=== PATIENT | female | born 1935 | race Caucasian/White ===

== ENCOUNTER 2017-04-28 11:46 | Emergency (ER) | payer MEDICARE, OTHER ==
[~2017-04-28] VITALS: Ht 170.2 cm; Wt 64.9 kg
[~2017-04-28 11:46] MED LIST: ATOM40 PO; ATOR40TA PO; ATORVASTATIN CA40 MG PO; Ativan1 MG PO; CARV25 PO; Cyclobenzaprine5 MG PO; FEXO180 PO; FEXO60; HYDACE5 PO; HYDR1TAB94 PO; LAMO100 PO; LEVSOD100 PO; MOEHYD7.5 PO; MOEX15 PO; Norco 5-325 Ta1 EACH PO; PRED20 PO; RALO60 PO; TRIHYD253A PO
[2017-04-28 12:14] LABS: BASOPHILS ABSOLUTE AUTO 0.02 K/mm3 (0.00-0.23); BASOPHILS PERCENT AUTO 0 % (0-2); EOSINOPHILS PERCENT AUTO 2 % (0-6); Hematocrit 37.6 % (33.0-51.0); Hemoglobin 12.6 g/dL (11.5-16.0); IMMATURE GRAN ABSOLUTE AUTO 0.02 K/mm3 (0.00-0.10); IMMATURE GRAN PERCENT AUTO 0 % (0-1); LYMPHOCYTES ABSOLUTE AUTO 0.93 K/mm3 (0.84-5.20); LYMPHOCYTES PERCENT AUTO 18 % (21-46); MONOCYTES PERCENT AUTO 10 % (4-13); Mean Corpuscular HGB 30.4 pg (26.0-34.0); Mean Corpuscular HGB Conc 33.5 g/dL (31.5-36.5); Mean Corpuscular Volume 91 fL (80-100); Mean Platelet Volume 9.6 fL (9.1-12.4); NEUTROPHILS ABSOLUTE AUTO 3.54 K/mm3 (1.96-9.15); NEUTROPHILS PERCENT AUTO 69 % (41-73); Platelet Count 165 K/mm3 (150-400); RDW Coefficient Variation 12.7 % (11.7-14.2); RDW Standard Deviation 41.7 fL (35.1-46.3); Red Blood Cell Count 4.14 M/mm3 (3.80-5.20); White Blood Cell Count 5.11 K/mm3 (4.00-11.30)
[2017-04-28 12:29] LABS: Alanine Aminotransfer (ALT/SGP 19 U/L (12-78); Albumin, Blood 3.4 g/dL (3.4-5.0); Albumin/Globulin Ratio 1.1 (0.8-1.8); Alk Phos 65 U/L (50-136); Anion Gap 9 mmol/L (6-16); Aspartate Aminotrans (AST/SGOT 17 U/L (12-37); Bilirubin, Total 0.7 mg/dL (0.1-1.0); Blood Urea Nitrogen 25 mg/dL (8-24); Bun/Creatinine Ratio 21.7 (12.0-20.0); CO2, Blood 27 mmol/L (21-32); Calcium, Blood 9.4 mg/dL (8.5-10.1); Chloride, Blood 104 mmol/L (98-108); Creatinine, Blood 1.15 mg/dL (0.40-1.00); Globulin, Blood 3.2 g/dL (2.2-4.0); Glomerular Filtration Rate 48 (60-); Glucose, Blood 101 mg/dL (70-99); Potassium, Blood 3.6 mmol/L (3.5-5.5); Sodium, Blood 140 mmol/L (136-145); Total Protein, Blood 6.6 g/dL (6.4-8.2); Troponin I <0.015 ng/mL (0.000-0.040)
[2017-04-28 12:57] LABS: Free Thyroxine 1.38 ng/dL (0.70-1.60)
[2017-08-24] MEDS ORDERED: Flonase 0.05% N16 GM (05:58)
[2017-09-14] MEDS ORDERED: ATOR40TA (11:05)
[2017-09-14] MEDS ORDERED: Calcium Magnes1 EAC1 (11:06)
== END 2017-04-28 14:09 | disposition home or self-care (01) ==
LOC: ER 11:46
PROVIDERS: Physician Assistant
DX: R55 Syncope and collapse (principal); R42 Dizziness and giddiness; I10 Essential (primary) hypertension; Z87.891 Personal history of nicotine dependence; Z79.899 Other long term (current) drug therapy
CPT/HCPCS: 36415; 70450; 71046; 80053; 84439; 84443; 84484; 85025; 93005; 93010; 99284

== ENCOUNTER 2017-10-01 19:43 | Emergency (ER) | payer MEDICARE, OTHER ==
[~2017-10-01] VITALS: Ht 172.7 cm; Wt 68.0 kg
[~2017-10-01 19:43] MED LIST changes: +ATOR40TA; +Calcium Magnes1 EAC1; +Flonase 0.05% N16 GM
[2017-10-01 21:08] LABS: BASOPHILS ABSOLUTE AUTO 0.05 K/mm3 (0.00-0.23); BASOPHILS PERCENT AUTO 1 % (0-2); EOSINOPHILS ABSOLUTE AUTO 0.11 K/mm3 (0.00-0.68); EOSINOPHILS PERCENT AUTO 2 % (0-6); Hematocrit 33.9 % (33.0-51.0); Hemoglobin 10.8 g/dL (11.5-16.0); IMMATURE GRAN ABSOLUTE AUTO 0.04 K/mm3 (0.00-0.10); IMMATURE GRAN PERCENT AUTO 1 % (0-1); LYMPHOCYTES ABSOLUTE AUTO 0.77 K/mm3 (0.84-5.20); LYMPHOCYTES PERCENT AUTO 13 % (21-46); MONOCYTES ABSOLUTE AUTO 0.64 K/mm3 (0.16-1.47); MONOCYTES PERCENT AUTO 10 % (4-13); Mean Corpuscular HGB 31.4 pg (26.0-34.0); Mean Corpuscular HGB Conc 31.9 g/dL (31.5-36.5); Mean Corpuscular Volume 99 fL (80-100); Mean Platelet Volume 10.1 fL (9.1-12.4); NEUTROPHILS ABSOLUTE AUTO 4.53 K/mm3 (1.96-9.15); NEUTROPHILS PERCENT AUTO 74 % (41-73); Platelet Count 208 K/mm3 (150-400); RDW Coefficient Variation 15.8 % (11.7-14.2); RDW Standard Deviation 52.6 fL (35.1-46.3); Red Blood Cell Count 3.44 M/mm3 (3.80-5.20); White Blood Cell Count 6.14 K/mm3 (4.00-11.30)
[2017-10-01 21:24] LABS: Alanine Aminotransfer (ALT/SGP 38 U/L (12-78); Albumin, Blood 2.4 g/dL (3.4-5.0); Albumin/Globulin Ratio 0.6 (0.8-1.8); Alk Phos 100 U/L (50-136); Anion Gap 4 mmol/L (6-16); Aspartate Aminotrans (AST/SGOT 33 U/L (12-37); Bilirubin, Total 0.3 mg/dL (0.1-1.0); Blood Urea Nitrogen 29 mg/dL (8-24); Bun/Creatinine Ratio 29.9 (12.0-20.0); CO2, Blood 28 mmol/L (21-32); Calcium, Blood 9.2 mg/dL (8.5-10.1); Chloride, Blood 105 mmol/L (98-108); Creatinine, Blood 0.97 mg/dL (0.40-1.00); Globulin, Blood 3.7 g/dL (2.2-4.0); Glomerular Filtration Rate 58 (60-); Glucose, Blood 120 mg/dL (70-99); Potassium, Blood 4.7 mmol/L (3.5-5.5); Sodium, Blood 137 mmol/L (136-145); Total Protein, Blood 6.1 g/dL (6.4-8.2); Troponin I <0.015 ng/mL (0.000-0.040)
== END 2017-10-01 23:10 | disposition home or self-care (01) ==
LOC: ER 19:43
PROVIDERS: Emergency Medicine
DX: R06.02 Shortness of breath (principal); Z79.899 Other long term (current) drug therapy; I10 Essential (primary) hypertension; E03.9 Hypothyroidism, unspecified; Z87.891 Personal history of nicotine dependence
CPT/HCPCS: 36415; 71046; 80053; 83880; 84484; 85025; 93005; 93010; 99285-25

== ENCOUNTER 2017-11-12 10:17 | Emergency (ER) | payer MEDICARE, OTHER ==
[~2017-11-12] VITALS: Ht 172.7 cm; Wt 78.0 kg
== END 2017-11-12 12:30 | disposition home or self-care (01) ==
LOC: ER 10:17
DX: K94.23 Gastrostomy malfunction (principal); I10 Essential (primary) hypertension; F41.9 Anxiety disorder, unspecified; Z79.899 Other long term (current) drug therapy; Z87.891 Personal history of nicotine dependence
CPT/HCPCS: 99283

== ENCOUNTER → 2020-09-30 | Outpatient (CLI) | payer MEDICARE | END | disposition home or self-care (01) | LOC: LAB 15:49 → LAB SHORT 15:49 | DX: D22.62 Melanocytic nevi of left upper limb, including shoulder (principal) | CPT/HCPCS: 88305 ==

== ENCOUNTER 2023-07-31 01:33 | Emergency (ER) | payer MEDICARE ==
[~2023-07-31] VITALS: Ht 167.6 cm; Wt 63.5 kg
[~2023-07-31 01:33] MED LIST changes: -ATOR40TA
[2023-07-31] MEDS ORDERED: HYDROcodone 5-APAP 325 TAB PO ONE (01:45)
[2023-07-31] MEDS ORDERED: RISEDRONATE SOD35 M2 PO (01:45)
[2023-07-31 02:05] LABS: BASOPHILS ABSOLUTE AUTO 0.03 K/mm3 (0.00-0.23); BASOPHILS PERCENT AUTO 1 % (0-2); EOSINOPHILS ABSOLUTE AUTO 0.12 K/mm3 (0.00-0.68); EOSINOPHILS PERCENT AUTO 2 % (0-6); Hematocrit 33.8 % (33.0-51.0); Hemoglobin 10.8 g/dL (11.5-16.0); IMMATURE GRAN ABSOLUTE AUTO 0.04 K/mm3 (0.00-0.10); IMMATURE GRAN PERCENT AUTO 1 % (0-1); LYMPHOCYTES ABSOLUTE AUTO 0.89 K/mm3 (0.84-5.20); LYMPHOCYTES PERCENT AUTO 14 % (21-46); MONOCYTES ABSOLUTE AUTO 0.62 K/mm3 (0.16-1.47); MONOCYTES PERCENT AUTO 10 % (4-13); Mean Corpuscular HGB 30.1 pg (26.0-34.0); Mean Corpuscular Volume 94 fL (80-100); Mean Platelet Volume 10.2 fL (9.1-12.4); NEUTROPHILS ABSOLUTE AUTO 4.67 K/mm3 (1.96-9.15); NEUTROPHILS PERCENT AUTO 73 % (41-73); Platelet Count 130 K/mm3 (150-400); RDW Coefficient Variation 12.8 % (11.7-14.2); RDW Standard Deviation 44.2 fL (35.1-46.3); Red Blood Cell Count 3.59 M/mm3 (3.80-5.20); White Blood Cell Count 6.37 K/mm3 (4.00-11.30)
[2023-07-31 02:23] LABS: Albumin, Blood 3.1 g/dL (3.4-5.0); Bilirubin, Total 0.6 mg/dL (0.1-1.0); Bun/Creatinine Ratio 34.5 (12.0-20.0); Calcium, Blood 9.5 mg/dL (8.5-10.1); Creatinine, Blood 0.93 mg/dL (0.40-1.00); Globulin, Blood 3.2 g/dL (2.2-4.0); Magnesium, Blood 2.1 mg/dL (1.6-2.4); Potassium, Blood 3.6 mmol/L (3.5-5.5); Total Protein, Blood 6.3 g/dL (6.4-8.2)
[2023-07-31] MEDS ORDERED: Norco 5-325 Ta1 EACH PO (02:59)
[2023-07-31 03:24] VITALS: BP 187/85
== END 2023-07-31 03:24 | disposition home or self-care (01) ==
LOC: ER 01:33
PROVIDERS: Emergency Medicine
DX: M25.561 Pain in right knee (principal); M25.551 Pain in right hip; I12.9 Hypertensive chronic kidney disease with stage 1 through stage 4 chronic kidney disease, or unspecified chronic kidney disease; N18.9 Chronic kidney disease, unspecified; E03.9 Hypothyroidism, unspecified; E78.5 Hyperlipidemia, unspecified; Z87.891 Personal history of nicotine dependence; Z79.899 Other long term (current) drug therapy
CPT/HCPCS: 73502; 73562-RT; 73610; 80053; 83735; 85025; 93005; 93010; 99284-25; A9270

== ENCOUNTER 2023-08-05 14:04 | Emergency (ER) | payer MEDICARE ==
[~2023-08-05] VITALS: Ht 167.6 cm; Wt 63.5 kg
[~2023-08-05 14:04] MED LIST changes: +RISEDRONATE SOD35 M2 PO
[2023-08-05] MEDS ORDERED: HYDROmorphone HCl/Pf 1MG SYR IV PRN (16:30)
[2023-08-05] MEDS ORDERED: Ondansetron HCl 2 MG / ML 2ML Vial IV ONE (16:30)
[2023-08-05 16:46] LABS: BASOPHILS ABSOLUTE AUTO 0.02 K/mm3 (0.00-0.23); BASOPHILS PERCENT AUTO 0 % (0-2); EOSINOPHILS PERCENT AUTO 0 % (0-6); Hematocrit 34.6 % (33.0-51.0); Hemoglobin 11.4 g/dL (11.5-16.0); IMMATURE GRAN ABSOLUTE AUTO 0.04 K/mm3 (0.00-0.10); IMMATURE GRAN PERCENT AUTO 1 % (0-1); LYMPHOCYTES ABSOLUTE AUTO 0.53 K/mm3 (0.84-5.20); LYMPHOCYTES PERCENT AUTO 7 % (21-46); MONOCYTES ABSOLUTE AUTO 0.66 K/mm3 (0.16-1.47); MONOCYTES PERCENT AUTO 8 % (4-13); Mean Corpuscular HGB 29.6 pg (26.0-34.0); Mean Corpuscular HGB Conc 32.9 g/dL (31.5-36.5); Mean Corpuscular Volume 90 fL (80-100); Mean Platelet Volume 9.6 fL (9.1-12.4); NEUTROPHILS PERCENT AUTO 84 % (41-73); Platelet Count 108 K/mm3 (150-400); RDW Coefficient Variation 12.7 % (11.7-14.2); Red Blood Cell Count 3.85 M/mm3 (3.80-5.20); White Blood Cell Count 7.85 K/mm3 (4.00-11.30)
[2023-08-05 17:12] LABS: Albumin, Blood 3.2 g/dL (3.4-5.0); Bilirubin, Total 1.4 mg/dL (0.1-1.0); Bun/Creatinine Ratio 34.3 (12.0-20.0); Calcium, Blood 9.6 mg/dL (8.5-10.1); Creatinine, Blood 1.08 mg/dL (0.40-1.00); Globulin, Blood 3.2 g/dL (2.2-4.0); Potassium, Blood 3.4 mmol/L (3.5-5.5); Total Protein, Blood 6.4 g/dL (6.4-8.2)
[2023-08-05 18:16] LABS: Source, Urine Straight Cath
[2023-08-05 18:28] LABS: Appearance, Urine Hazy (Clear); Bilirubin, Urine Neg (Neg); Blood, Urine 1+ (Neg); Color, Urine Yellow (P-Yellow); Glucose Qualitative, Urine Neg (Neg); Ketones, Urine Neg (Neg); Leukocyte Esterase, Urine Neg (Neg); Nitrite, Urine Neg (Neg); Protein, Urine 2+ (Neg); Specific Gravity, Urine 1.015 (1.003-1.022); Urobilinogen, Urine NORM (Normal)
[2023-08-05 18:45] LABS: Bacteria Many /hpf; Mucus Light (0-Heavy); Red Blood Cells, Urine 0-2 /hpf (0-2); Squamous Epithelial Cells Rare /hpf (Few)
[2023-08-06] MEDS ORDERED: Ondansetron 8 MG SoluTab SL ONE (05:50)
[2023-08-06] MEDS ORDERED: Carvedilol12.5 MG PO (09:03)
[2023-08-06] MEDS ORDERED: LISINOPRIL-HCT1 EAC1 (09:04)
[2023-08-06] MEDS ORDERED: LEVSOD75 PO (09:04)
[2023-08-06] MEDS ORDERED: HYDROCODONE-AC1 EA19 PO (09:05)
[2023-08-06] MEDS ORDERED: Ketorolac Tromethamine 30mg Vial IV ONE (09:15)
[2023-08-06] MEDS ORDERED: Methocarbamol 500 MG Tab PO ONE (09:15)
[2023-08-06] MEDS ORDERED: Carvedilol 6.25 MG Tab PO ONE (10:05)
[2023-08-06] MEDS ORDERED: Levothyroxine Sodium 0.075 MG Tab PO ONE (10:10)
[2023-08-06] MEDS ORDERED: Lisinopril 20 MG Tab PO ONE (10:10)
[2023-08-06] MEDS ORDERED: LamoTRIgine 25 MG Tab PO ONE (10:10)
[2023-08-06] MEDS ORDERED: LamoTRIgine 100 MG Tab PO ONE (10:10)
[2023-08-06 12:07] VITALS: BP 103/70
== END 2023-08-06 12:25 | disposition home or self-care (01) ==
LOC: ER 14:04
PROVIDERS: Emergency Medicine
DX: S32.10XA Unspecified fracture of sacrum, initial encounter for closed fracture (principal); R26.81 Unsteadiness on feet; R53.1 Weakness; E78.5 Hyperlipidemia, unspecified; I12.9 Hypertensive chronic kidney disease with stage 1 through stage 4 chronic kidney disease, or unspecified chronic kidney disease; N18.9 Chronic kidney disease, unspecified; E03.9 Hypothyroidism, unspecified; X58.XXXA Exposure to other specified factors, initial encounter; Z87.891 Personal history of nicotine dependence; Z79.899 Other long term (current) drug therapy
CPT/HCPCS: 51701; 51798; 71046; 72100; 72131; 72170; 80053; 81001; 85025; 87077; 87086; 87186; 93005; 93010; 96374-59; 96375-59; 99285-25; A9270; J1170; J1885; J2405

== ENCOUNTER → 2023-08-14 | Outpatient (CLI) | payer MEDICARE ==
[~2023-08-14] MED LIST changes: +Carvedilol12.5 MG PO; +HYDROCODONE-AC1 EA19 PO; +LEVSOD75 PO; +LISINOPRIL-HCT1 EAC1
== END | disposition home or self-care (01) ==
LOC: LAB SHORT 12:30 → LAB 12:30
DX: R30.0 Dysuria (principal)
CPT/HCPCS: 87086

== ENCOUNTER → 2023-09-04 | Outpatient (CLI) | payer MEDICARE | END | disposition home or self-care (01) | LOC: LAB 14:00 → LAB SHORT 14:00 | DX: N39.0 Urinary tract infection, site not specified (principal) | CPT/HCPCS: 87077; 87086; 87186 ==

== ENCOUNTER 2023-09-25 17:22 | Emergency (ER) | payer MEDICARE ==
[~2023-09-25] VITALS: Ht 172.7 cm; Wt 61.2 kg
[~2023-09-25 17:22] MED LIST changes: -LISINOPRIL-HCT1 EAC1; +LISINOPRIL-HCT1 EAC1 PO
[2023-09-25 17:54] LABS: BASOPHILS ABSOLUTE AUTO 0.04 K/mm3 (0.00-0.23); BASOPHILS PERCENT AUTO 1 % (0-2); EOSINOPHILS ABSOLUTE AUTO 0.23 K/mm3 (0.00-0.68); EOSINOPHILS PERCENT AUTO 4 % (0-6); Hematocrit 30.5 % (33.0-51.0); Hemoglobin 9.6 g/dL (11.5-16.0); IMMATURE GRAN ABSOLUTE AUTO 0.03 K/mm3 (0.00-0.10); IMMATURE GRAN PERCENT AUTO 1 % (0-1); LYMPHOCYTES ABSOLUTE AUTO 0.96 K/mm3 (0.84-5.20); LYMPHOCYTES PERCENT AUTO 15 % (21-46); MONOCYTES PERCENT AUTO 8 % (4-13); Mean Corpuscular HGB 28.9 pg (26.0-34.0); Mean Corpuscular HGB Conc 31.5 g/dL (31.5-36.5); Mean Corpuscular Volume 92 fL (80-100); Mean Platelet Volume 9.1 fL (9.1-12.4); NEUTROPHILS ABSOLUTE AUTO 4.83 K/mm3 (1.96-9.15); NEUTROPHILS PERCENT AUTO 73 % (41-73); Platelet Count 164 K/mm3 (150-400); RDW Coefficient Variation 13.5 % (11.7-14.2); Red Blood Cell Count 3.32 M/mm3 (3.80-5.20); White Blood Cell Count 6.59 K/mm3 (4.00-11.30)
[2023-09-25 18:01] LABS: Source, Urine Clean Catch
[2023-09-25] MEDS ORDERED: DOCU100 PO (18:03)
[2023-09-25] MEDS ORDERED: QUET25 PO (18:03)
[2023-09-25] MEDS ORDERED: CENTRUM SILVER1 EAC2 PO (18:04)
[2023-09-25 18:08] LABS: Appearance, Urine Clear (Clear); Bilirubin, Urine Neg (Neg); Blood, Urine Neg (Neg); Color, Urine Yellow (P-Yellow); Glucose Qualitative, Urine Neg (Neg); Ketones, Urine Neg (Neg); Leukocyte Esterase, Urine Neg (Neg); Nitrite, Urine Neg (Neg); Protein, Urine 1+ (Neg); Urobilinogen, Urine NORM (Normal)
[2023-09-25] MEDS ORDERED: HYDROcodone 5-APAP 325 TAB PO ONE (18:35)
[2023-09-25 18:36] LABS: Albumin, Blood 2.9 g/dL (3.4-5.0); Albumin/Globulin Ratio 0.8 (0.8-1.8); Bilirubin, Total 0.5 mg/dL (0.1-1.0); Bun/Creatinine Ratio 33.6 (12.0-20.0); Calcium, Blood 9.4 mg/dL (8.5-10.1); Creatinine, Blood 1.52 mg/dL (0.40-1.00); Globulin, Blood 3.6 g/dL (2.2-4.0); Potassium, Blood 4.3 mmol/L (3.5-5.5); Thyroid Stimulating Hormone 1.89 uIU/mL (0.360-4.800); Total Protein, Blood 6.5 g/dL (6.4-8.2)
[2023-09-25] MEDS ORDERED: NS 1,000 ML IV SCH (19:20)
[2023-09-25 19:33] LABS: Influenza A, PCR NEGATIVE (NEGATIVE); Influenza B, PCR NEGATIVE (NEGATIVE); Resp Syncytial Virus, PCR NEGATIVE (NEGATIVE); SARS-Cov-2 (COVID-19) PCR, MMC NEGATIVE (NEGATIVE)
[2023-09-25 22:46] VITALS: BP 122/63
== END 2023-09-25 23:15 | disposition home or self-care (01) ==
LOC: ER 17:22
PROVIDERS: Emergency Medicine; Student in an Organized Health Care Education/Training Program
DX: R53.1 Weakness (principal); N28.9 Disorder of kidney and ureter, unspecified; I12.9 Hypertensive chronic kidney disease with stage 1 through stage 4 chronic kidney disease, or unspecified chronic kidney disease; N18.9 Chronic kidney disease, unspecified; E86.0 Dehydration; E03.9 Hypothyroidism, unspecified; E78.5 Hyperlipidemia, unspecified; Z87.891 Personal history of nicotine dependence; Z79.899 Other long term (current) drug therapy; Z79.890 Hormone replacement therapy
CPT/HCPCS: 0241U; 74177; 80053; 84443; 85025; 99284-25; A9270; P9612; Q9967

== ENCOUNTER 2023-10-05 13:05 | Emergency (ER) | payer MEDICARE ==
[~2023-10-05] VITALS: Ht 170.2 cm; Wt 61.2 kg
[~2023-10-05 13:05] MED LIST changes: +CENTRUM SILVER1 EAC2 PO; +DOCU100 PO; +QUET25 PO
[2023-10-05] MEDS ORDERED: MIRALAX17 GM PO (13:19)
[2023-10-05] MEDS ORDERED: CEPH500 PO (13:20)
[2023-10-05] MEDS ORDERED: NS 1,000 ML IV SCH (13:20)
[2023-10-05 14:14] LABS: BASOPHILS ABSOLUTE AUTO 0.03 K/mm3 (0.00-0.23); BASOPHILS PERCENT AUTO 1 % (0-2); EOSINOPHILS ABSOLUTE AUTO 0.17 K/mm3 (0.00-0.68); EOSINOPHILS PERCENT AUTO 3 % (0-6); Hemoglobin 9.1 g/dL (11.5-16.0); IMMATURE GRAN ABSOLUTE AUTO 0.04 K/mm3 (0.00-0.10); IMMATURE GRAN PERCENT AUTO 1 % (0-1); LYMPHOCYTES ABSOLUTE AUTO 0.83 K/mm3 (0.84-5.20); LYMPHOCYTES PERCENT AUTO 13 % (21-46); MONOCYTES ABSOLUTE AUTO 0.61 K/mm3 (0.16-1.47); MONOCYTES PERCENT AUTO 9 % (4-13); Mean Corpuscular HGB 28.9 pg (26.0-34.0); Mean Corpuscular HGB Conc 32.5 g/dL (31.5-36.5); Mean Corpuscular Volume 89 fL (80-100); Mean Platelet Volume 9.9 fL (9.1-12.4); NEUTROPHILS PERCENT AUTO 74 % (41-73); Platelet Count 170 K/mm3 (150-400); RDW Coefficient Variation 14.1 % (11.7-14.2); RDW Standard Deviation 45.5 fL (35.1-46.3); Red Blood Cell Count 3.15 M/mm3 (3.80-5.20); White Blood Cell Count 6.58 K/mm3 (4.00-11.30)
[2023-10-05 14:43] LABS: Albumin, Blood 2.8 g/dL (3.4-5.0); Albumin/Globulin Ratio 0.9 (0.8-1.8); Bilirubin, Total 0.5 mg/dL (0.1-1.0); Bun/Creatinine Ratio 23.9 (12.0-20.0); Calcium, Blood 8.6 mg/dL (8.5-10.1); Creatinine, Blood 1.38 mg/dL (0.40-1.00); Globulin, Blood 3.1 g/dL (2.2-4.0); Potassium, Blood 4.4 mmol/L (3.5-5.5); Thyroid Stimulating Hormone 3.13 uIU/mL (0.360-4.800); Total Protein, Blood 5.9 g/dL (6.4-8.2)
[2023-10-05 16:12] VITALS: BP 146/84
== END 2023-10-05 16:13 | disposition home or self-care (01) ==
LOC: ER 13:05
PROVIDERS: Emergency Medicine
DX: I95.9 Hypotension, unspecified (principal); E86.0 Dehydration; I12.9 Hypertensive chronic kidney disease with stage 1 through stage 4 chronic kidney disease, or unspecified chronic kidney disease; N18.9 Chronic kidney disease, unspecified; E78.5 Hyperlipidemia, unspecified; E03.9 Hypothyroidism, unspecified; Z87.891 Personal history of nicotine dependence; Z79.899 Other long term (current) drug therapy
CPT/HCPCS: 80053; 84443; 85025; 93005; 93010; 96360; 99285-25; J7030

== ENCOUNTER 2023-11-18 08:20 | Emergency (ER) | payer MEDICARE ==
[~2023-11-18] VITALS: Ht 167.6 cm; Wt 70.3 kg
[~2023-11-18 08:20] MED LIST changes: +CEPH500 PO; +MIRALAX17 GM PO
[2023-11-18] MEDS ORDERED: Ketorolac Tromethamine 30mg Vial IM ONE (09:10)
[2023-11-18] MEDS ORDERED: OxyCODONE HCL 5 MG TAB PO ONE (09:10)
[2023-11-18 10:40] LABS: Source, Urine Straight Cath
[2023-11-18 10:44] LABS: Appearance, Urine Hazy (Clear); Bilirubin, Urine Neg (Neg); Blood, Urine Neg (Neg); Color, Urine Yellow (P-Yellow); Glucose Qualitative, Urine Neg (Neg); Ketones, Urine Neg (Neg); Leukocyte Esterase, Urine Neg (Neg); Nitrite, Urine Neg (Neg); Protein, Urine 1+ (Neg); Urobilinogen, Urine NORM (Normal)
[2023-11-18 10:52] LABS: Bacteria Few /hpf; Red Blood Cells, Urine 0-2 /hpf (0-2); Renal Epithelial Rare /hpf (0-Rare); Squamous Epithelial Cells Few /hpf (Few); Transitional Epithelial Cells Rare /hpf (0-Rare); White Blood Cells, Urine 0-2 /hpf (0-5)
[2023-11-18] MEDS ORDERED: OXYC5 PO ×2 (11:21)
[2023-11-18 12:15] VITALS: BP 127/65
== END 2023-11-18 12:20 | disposition home or self-care (01) ==
LOC: ER 08:20
PROVIDERS: Student in an Organized Health Care Education/Training Program
DX: S82.202A Unspecified fracture of shaft of left tibia, initial encounter for closed fracture (principal); S82.832A Other fracture of upper and lower end of left fibula, initial encounter for closed fracture; F03.90 Unspecified dementia, unspecified severity, without behavioral disturbance, psychotic disturbance, mood disturbance, and anxiety; I12.9 Hypertensive chronic kidney disease with stage 1 through stage 4 chronic kidney disease, or unspecified chronic kidney disease; N18.9 Chronic kidney disease, unspecified; E03.9 Hypothyroidism, unspecified; W18.30XA Fall on same level, unspecified, initial encounter; Z87.891 Personal history of nicotine dependence; Z79.899 Other long term (current) drug therapy
CPT/HCPCS: 73590; 73610; 81001; 96372; 99283-25; A9270; J1885; P9612

== ENCOUNTER 2023-11-20 16:36 | Inpatient (IN) | payer MEDICARE ==
[~2023-11-20] VITALS: Ht 172.7 cm; Wt 65.8 kg
[~2023-11-20 16:36] MED LIST changes: +OXYC5 PO
[2023-11-20] MEDS ORDERED: QUEtiapine Fumarate 25 MG Tab PO ONE (19:25)
[2023-11-20 19:35] LABS: BASOPHILS ABSOLUTE AUTO 0.03 K/mm3 (0.00-0.23); BASOPHILS PERCENT AUTO 0 % (0-2); EOSINOPHILS ABSOLUTE AUTO 0.33 K/mm3 (0.00-0.68); EOSINOPHILS PERCENT AUTO 5 % (0-6); Hematocrit 23.7 % (33.0-51.0); Hemoglobin 7.9 g/dL (11.5-16.0); IMMATURE GRAN ABSOLUTE AUTO 0.03 K/mm3 (0.00-0.10); IMMATURE GRAN PERCENT AUTO 0 % (0-1); LYMPHOCYTES ABSOLUTE AUTO 0.74 K/mm3 (0.84-5.20); LYMPHOCYTES PERCENT AUTO 10 % (21-46); MONOCYTES ABSOLUTE AUTO 0.62 K/mm3 (0.16-1.47); MONOCYTES PERCENT AUTO 9 % (4-13); Mean Corpuscular HGB 27.4 pg (26.0-34.0); Mean Corpuscular HGB Conc 33.3 g/dL (31.5-36.5); Mean Corpuscular Volume 82 fL (80-100); Mean Platelet Volume 9.6 fL (9.1-12.4); NEUTROPHILS ABSOLUTE AUTO 5.51 K/mm3 (1.96-9.15); NEUTROPHILS PERCENT AUTO 76 % (41-73); Platelet Count 195 K/mm3 (150-400); RDW Coefficient Variation 13.5 % (11.7-14.2); RDW Standard Deviation 40.9 fL (35.1-46.3); Red Blood Cell Count 2.88 M/mm3 (3.80-5.20); White Blood Cell Count 7.26 K/mm3 (4.00-11.30)
[2023-11-20 19:55] LABS: Source, Urine Straight Cath
[2023-11-20 20:00] LABS: Appearance, Urine Hazy (Clear); Bilirubin, Urine Neg (Neg); Blood, Urine 1+ (Neg); Color, Urine Yellow (P-Yellow); Glucose Qualitative, Urine Neg (Neg); Ketones, Urine Neg (Neg); Leukocyte Esterase, Urine 3+ (Neg); Nitrite, Urine Neg (Neg); Protein, Urine Neg (Neg); Urobilinogen, Urine NORM (Normal)
[2023-11-20 20:01] LABS: Albumin, Blood 2.5 g/dL (3.4-5.0); Bilirubin, Total 0.7 mg/dL (0.1-1.0); Bun/Creatinine Ratio 23.3 (12.0-20.0); Calcium, Blood 8.8 mg/dL (8.5-10.1); Creatinine, Blood 1.2 mg/dL (0.40-1.00); Globulin, Blood 2.5 g/dL (2.2-4.0); Potassium, Blood 4.4 mmol/L (3.5-5.5)
[2023-11-20 20:20] LABS: Amorphous Light (0-Heavy); Bacteria Mod /hpf; Red Blood Cells, Urine 0-2 /hpf (0-2); Squamous Epithelial Cells Not Seen /hpf (Few); White Blood Cells, Urine 25-50 /hpf (0-5)
[2023-11-20] MEDS ORDERED: CefTRIAXone Sodium 1,000 MG in NS 100 ML IV ONE (20:35)
[2023-11-20] MEDS ORDERED: Ondansetron HCl 2 MG / ML 2ML Vial IV PRN (21:20)
[2023-11-20] MEDS ORDERED: FLU VACC TS2024-25(6MOS UP)/PF 45 MCG/0.5 ML SYRINGE IM SCH (21:20)
[2023-11-20] MEDS ORDERED: NS 1,000 ML IV SCH (21:20)
[2023-11-20] MEDS ORDERED: LORazepam 2 MG/ML 1ML Injection IV PRN (21:20)
[2023-11-20] MEDS ORDERED: Acetaminophen 325 MG TABLET PO PRN (21:25)
[2023-11-20] MEDS ORDERED: NS 500 ML IV ONE (22:00)
[2023-11-20] MEDS ORDERED: NS 1,000 ML IV ONE (22:05)
[2023-11-20 23:48] VITALS: BP 142/85
[2023-11-21 01:15] LABS: Bun/Creatinine Ratio 22.7 (12.0-20.0); Calcium, Blood 8.8 mg/dL (8.5-10.1); Creatinine, Blood 1.19 mg/dL (0.40-1.00); Potassium, Blood 4.3 mmol/L (3.5-5.5)
[2023-11-21 02:23] VITALS: BP 119/94
[2023-11-21 05:12] LABS: Hemoglobin 7.7 g/dL (11.5-16.0); Mean Corpuscular HGB Conc 33.5 g/dL (31.5-36.5); Mean Corpuscular Volume 84 fL (80-100); Mean Platelet Volume 9.2 fL (9.1-12.4); Platelet Count 168 K/mm3 (150-400); RDW Coefficient Variation 13.4 % (11.7-14.2); RDW Standard Deviation 40.8 fL (35.1-46.3); Red Blood Cell Count 2.75 M/mm3 (3.80-5.20); White Blood Cell Count 7.23 K/mm3 (4.00-11.30)
[2023-11-21 05:45] LABS: Bun/Creatinine Ratio 21.6 (12.0-20.0); Creatinine, Blood 1.16 mg/dL (0.40-1.00); Magnesium, Blood 2.2 mg/dL (1.6-2.4); Potassium, Blood 4.3 mmol/L (3.5-5.5)
--- NOTE | 2023-11-21 05:53 | NUR ---
FOOD CRITIC SUMMARY PT ARRIVED TO UNIT AFTER RECEIVING IV ATIVAN IN THE ER FOR SEVERE AGITATION AND YELLING. SHE COULD OPEN HER EYES AND MUMBLE WORDS BUT CANNOT TELL ME HER NAME AND SAYS "NO" WHEN I ASK HER IF SHE KNOWS WHERE SHE IS. SHE SAID SHE WANTED WATER BUT COULD NOT FIGURE OUT HOW TO SUCK THROUGH THE STRAW OR HOW TO HOLD THE CUP. MADE HER NPO TEMPORARILY UNTIL ATIVAN WEARS OFF AND THEN WILL REASSESS. SHE HAS A LOT OF PAIN IN HER LEG AND WILL LIKELY NEED PAIN MEDICATION ORDERS. SHE HAS 2-3+ LOWER EXTREMITY EDEMA, BNP 565 BUT IS REQUIRING IVF FOR HER LOW SODIUM LEVEL. MAY BENEFIT FROM A GOALS OF CARE CONFERENCE. MAY NEED SPEACH THERAPY EVAL. PT ADMITTED WITH AN OPEN PRESSURE INJURY TO HER COCCYX. DR. LITTLEJOHN NOTIFIED, PHOTO OF WOUND PLACED IN PAPER CHART, WOUND CLEANSED AND PLACED MEPILEX, PT TURNED EVERY 2 HOURS. PT IS VERY PAINFUL WHEN ROLLED SIDE TO SIDE AND YELLS OUT. DAY SHIFT NURSE TO CALL [facility] AFTER THEY OPEN AFTER 0900 FOR UPDATED MED LIST. DOCTOR NOTES INDIDCATE PT POSSIBLY NEEDS CAST ON LOWER LEG? THIS WILL NEED TO BE CLARIFIED TODAY.
[2023-11-21] MEDS ORDERED: Levothyroxine Sodium 0.075 MG Tab PO SCH (06:00)
[2023-11-21 07:45] VITALS: BP 159/81
[2023-11-21] MEDS ORDERED: Carvedilol 6.25 MG Tab PO SCH (08:00)
[2023-11-21] MEDS ORDERED: LamoTRIgine 100 MG Tab PO SCH (09:00)
[2023-11-21] MEDS ORDERED: Lactobacil 2-S.Thermo-Bifido 1 1 Cap PO SCH (09:00)
[2023-11-21] MEDS ORDERED: Heparin Sodium,Porcine 5,000 UNIT/0.5 ML SDV SC SCH (09:00)
[2023-11-21] MEDS ORDERED: Docusate Sodium 100 MG Cap PO SCH (09:00)
[2023-11-21 12:21] LABS: Bun/Creatinine Ratio 24.3 (12.0-20.0); Calcium, Blood 9.1 mg/dL (8.5-10.1); Creatinine, Blood 1.03 mg/dL (0.40-1.00); Potassium, Blood 4.4 mmol/L (3.5-5.5)
--- NOTE | 2023-11-21 15:15 | NUR ---
MET WITH PT'S BROTHER IN THE HALLWAY FOR A BREIF MOMENT. THIS PC RN INTRODUCED SELF TO HIM. HE PROVIDED AN ADVANCE DIRECTIVE, PHOTO COPIES MADE. COPY SENT TO MEDICAL RECORDS FOR SCANNING AND ONE PLACED ON HARD CHART. ORIGINAL ADVANCE DIRECTIVE RETURNED TO PT'S BROTHER. PC RN RETURNED TO ROOM 20 MINUTES LATER TO REVIEW GOC AND TO FILL OUT A POLST FORM. BROTHER HAD LEFT THE ROOM. NOTIFIED PRIMARY RN TO CALL PC WHEN FAMILY RETURNS.
[2023-11-21 16:28] VITALS: BP 155/80
--- NOTE | 2023-11-21 18:01 | NUR ---
SHIFT SUMMARY PT SLEEPING AT START OF SHIFT AND FOR MOST OF THE DAY. PT WOULD WAKE BRIEFLY TO VERBAL STIMULI AND LATER ON HER OWN TO YELL OUT "WHERE AM I". PT WITH SEVERE DEMENTIA; ADMITTED FOR METABOLIC ENCEPHALOPATHY. SUPERVISOR INSULATION HERE THIS AM TO CK ON PT AND TALKED WITH TEACHER LEARNING DISABLED AND PT'S FAMILY. PT LIVING AT "[facility]". FAMILY REQUESTING PT TO BE DNR; DR PLATA NOTIFIED. CHART UPDATED. PT'S BROTHER ALSO BROUGHT IN ADVANCED DIRECTIVE/POLST WHICH STATED DNR. PALLIATIVE CARE RN COPIED DOCUMENTS AND PLACED ON CHART. SPEECH EVAL COMPLETED THIS AFTERNOON. DIET ORDERED. PT'S BROTHER AND RETURNED AT DINNER TIME. PT ABLE TO EAT ALL OF DINNER AND DRANK SEVERAL CONTAINERS OF THICKENED WATER AND JUICE. PT DOES REQUIRE FEEDING AND DRINKING ASSIST. NO S/SX'S OF DISTRESS NOTED OR REPORTED AT THIS TIME. CALL LT IN REACH. FAMILY REMAINS AT BS.
[2023-11-21 20:37] VITALS: BP 106/52
[2023-11-21 20:40] VITALS: BP 150/76
[2023-11-21] MEDS ORDERED: CefTRIAXone Sodium 1,000 MG in NS 100 ML IV SCH (21:00)
[2023-11-21] MEDS ORDERED: QUEtiapine Fumarate 25 MG Tab PO SCH (21:00)
[2023-11-21] MEDS ORDERED: Atorvastatin 40 MG Tab PO SCH (21:00)
[2023-11-22 05:40] VITALS: BP 168/96
[2023-11-22 05:41] VITALS: BP 168/96
[2023-11-22 05:51] LABS: BASOPHILS ABSOLUTE AUTO 0.04 K/mm3 (0.00-0.23); BASOPHILS PERCENT AUTO 1 % (0-2); EOSINOPHILS ABSOLUTE AUTO 0.18 K/mm3 (0.00-0.68); EOSINOPHILS PERCENT AUTO 2 % (0-6); Hematocrit 24.3 % (33.0-51.0); Hemoglobin 8.1 g/dL (11.5-16.0); IMMATURE GRAN ABSOLUTE AUTO 0.03 K/mm3 (0.00-0.10); IMMATURE GRAN PERCENT AUTO 0 % (0-1); LYMPHOCYTES ABSOLUTE AUTO 0.69 K/mm3 (0.84-5.20); LYMPHOCYTES PERCENT AUTO 9 % (21-46); MONOCYTES ABSOLUTE AUTO 0.63 K/mm3 (0.16-1.47); MONOCYTES PERCENT AUTO 8 % (4-13); Mean Corpuscular HGB 27.4 pg (26.0-34.0); Mean Corpuscular HGB Conc 33.3 g/dL (31.5-36.5); Mean Corpuscular Volume 82 fL (80-100); Mean Platelet Volume 9.3 fL (9.1-12.4); NEUTROPHILS ABSOLUTE AUTO 6.39 K/mm3 (1.96-9.15); NEUTROPHILS PERCENT AUTO 80 % (41-73); Platelet Count 205 K/mm3 (150-400); RDW Coefficient Variation 13.6 % (11.7-14.2); Red Blood Cell Count 2.96 M/mm3 (3.80-5.20); White Blood Cell Count 7.96 K/mm3 (4.00-11.30)
[2023-11-22 06:15] LABS: Percent Saturation 10.6 % (15.0-50.0)
[2023-11-22 06:55] LABS: Bun/Creatinine Ratio 21.3 (12.0-20.0); Calcium, Blood 8.6 mg/dL (8.5-10.1); Creatinine, Blood 0.94 mg/dL (0.40-1.00); Potassium, Blood 3.9 mmol/L (3.5-5.5)
[2023-11-22 07:13] VITALS: BP 167/98
[2023-11-22] MEDS ORDERED: Lisinopril 20 MG Tab PO SCH (09:00)
[2023-11-22] MEDS ORDERED: Arginine/Glutamine/Calcium Hmb 1 Packet PO SCH (09:54)
--- NOTE | 2023-11-22 11:12 | NUR ---
am note this rn assumed care at 0700. vital signs stable. patient is alert and oriented to self. denies pain, chest pain/pressure or shortness of breath. patient has left tib-fib fracture with splint in place. q2 repositioning. see shift assessment for further detials. rochelle in to see patient this am. discussed plan of care with patient. plan of care is up to date
--- NOTE | 2023-11-22 16:04 | NUR ---
GOALS OF CARE CONVERSATION WITH PT'S BROTHER/POA AND PRIMARY RN AT PT'S ROOM. PT'S BROTHER IS IN AGREEMENT WITH PT RETURNING TO HER HOME ([facility]) WITH HOSPICE SERVICE. NEW POLST FILLED OUT TO REFLECT DNR/MEDICAL ASSISTANT INTERNAL MEDICINE. STARTING COMFORT CARE WHILE IN THE HOSPITAL. PROVIDER PLACING ORDERS.
[2023-11-22] MEDS ORDERED: Morphine Sulfate 20 MG/1ML 1 ML Oral Syringe PO PRN (16:05)
[2023-11-22] MEDS ORDERED: LORazepam 0.5 MG Tab PO PRN (16:05)
[2023-11-22] MEDS ORDERED: Scopolamine Hydrobromide Patch TOP PRN (16:10)
[2023-11-22] MEDS ORDERED: Acetaminophen 650 MG Supp PR PRN (16:10)
[2023-11-22] MEDS ORDERED: Atropine Sulfate 1% Opth Soln 2ML BTL SL PRN (16:10)
--- NOTE | 2023-11-22 17:45 | NUR ---
shift summary this rn and palliative care rn spoke with patient brother, missy who is POA. after conversation and looking over advance directive it was decided to move forward with comfort care and to go back to [facility] with hospice. plan to go back monday with hospice. this rn updated bill, caregiver, at the facility. this rn updated md byrd. comfort care orders in place. plan is up to date
[2023-11-22] MEDS ORDERED: Percocet 5-3251 EACH PO ×2 (17:55)
--- NOTE | 2023-11-23 02:03 | NUR ---
END OF SHIFT SUMMARY PT APPEARS TO BE RESTING WELL WITH NO COMPLAINTS. SHE DENIES PAIN BUT DEFINITELY APPEARS PAINFUL WHEN REPOSITIONED R/T HER LEFT LOWER LEG FRACTURE. PT DENIES NAUSEA OR ANXIETY. NO PRNS GIVEN THIS SHIFT. PTS FRIEND ITA WAS HERE FOR SEVERAL HOURS AND HELPED KEEP PT CALM AND HAPPY.
--- NOTE | 2023-11-23 06:04 | NUR ---
GEOPHYSICAL OBSERVER SUMMARY ABLE TO KEEP PT COMFORTABLE WITH NONPHARMACOLOGIC APPROACHES. FREQUENT REPOSITIONING AND 1-ON-1 TIME. PT HAD A GOOD FRIEND COME AND SIT WITH HER FOR SEVERAL HOURS LAST NIGHT.
--- NOTE | 2023-11-23 08:26 | NUR ---
Spisitual Care Visit. Pt. is resting when I enter the room but responds when I enterthe room. The pt. is pleasant. Faciliated a short life review and considered matters of jessika and belief. Pt. displays evidence of engagement and awareness. Pryaed with Pt. and when the prayer ended the Pt. became somnolent. will remain available to the Pt. and family.
[2023-11-23 09:21] VITALS: BP 149/96
--- NOTE | 2023-11-23 16:17 | NUR ---
SHIFT SUMMARY MS DURHAM HAS BEEN AWAKE MOST OF THE DAY, EYES OPEN EASILY TO VOICE. ORIENTATED TO HER OWN NAME BUT CONFUSED ABOUT WHERE SHE IS AND WHO SHE HAS AROUND HER. SHE HAS EDEMA BLE, LEGS ELEVATED ON PILLOWS, TURNED AND REPOSITIONED Q2HRS, PROPPED WITH PILLOWS FOR COMFORT. PT SOMETIMES DESCRIBES FULL BODY ACHES, SOMETIMES PAIN JUST IN HER RIGHT ELBOW OR KNEE AND SOMETIMES SAYS THAT SHE HAS NO DISCOMFORT AT ALL. CURRENTLY SMILING AND ENGAGED IN CONVERSATION WITH VISITORS AT HER BEDSIDE. AYOUB CATHETER DRAINING, 700CC EMPTIED. POOR PO APPETITE, BUT DOES TAKE SMALL AMOUNTS. BED LOW, CALL LIGHT IN REACH, BED ALARM ON.
[2023-11-23 17:36] VITALS: BP 123/68
--- NOTE | 2023-11-24 05:48 | NUR ---
GRAIN BLENDER SUMMARY PT KEPT COMFORTABLE EASILY WITH SMALL DOSES OF ROXANOL. ANTICIPATING DISCHARGE TODAY AT 10 AM PER NOTE FROM .
[2023-11-24] MEDS ORDERED: 1/2 NS 250ml250 ML ×2 (07:48)
[2023-11-24] MEDS ORDERED: MORP20L PO ×2 (07:48)
[2023-11-24] MEDS ORDERED: ATROPINE SULFATE2 M1 SL ×2 (07:52)
[2023-11-24] MEDS ORDERED: ACET500 PO ×2 (07:52)
[2023-11-24] MEDS ORDERED: LISI20 PO ×2 (07:54)
[2023-11-24] MEDS ORDERED: ATIVAN0.5 MG PO ×2 (07:54)
[2023-11-24] MEDS ORDERED: TRANSDERM-SCOP1 EA13 TD ×2 (07:55)
[2023-11-24] MEDS ORDERED: OXYC5 PO ×2 (08:59)
--- NOTE | 2023-11-24 10:30 | NUR ---
Spiritual Care Visit. Prior to discharge came to bedside. Supportive friends are present. Prayed for the Pt. Facilitated more life review with Pts. friends who verbalized gratitude for the spiritual care visit.
== END 2023-11-24 10:25 | disposition hospice, home (50) | DRG 640 ==
LOC: ER 16:36 → MEDS 21:15
PROVIDERS: Emergency Medicine; Family Medicine; Nurse Practitioner Acute Care; ADMIT Internal Medicine
DX: E87.1 Hypo-osmolality and hyponatremia (principal); G92.8 Other toxic encephalopathy; N39.0 Urinary tract infection, site not specified; Z99.3 Dependence on wheelchair; N18.30 Chronic kidney disease, stage 3 unspecified; Z51.5 Encounter for palliative care; Z66 Do not resuscitate; D63.1 Anemia in chronic kidney disease; E03.9 Hypothyroidism, unspecified; I12.9 Hypertensive chronic kidney disease with stage 1 through stage 4 chronic kidney disease, or unspecified chronic kidney disease; F03.90 Unspecified dementia, unspecified severity, without behavioral disturbance, psychotic disturbance, mood disturbance, and anxiety; Z79.890 Hormone replacement therapy; Z79.899 Other long term (current) drug therapy
CPT/HCPCS: 36415; 51702; 70450; 73590; 73610; 80048; 80053; 81001; 82570; 82607; 82728; 82746; 83540; 83550; 83735; 83880; 83930; 84295; 84300; 84443; 85025; 85027; 92610; 93971; 96372; 96374-59; 99283-25; 99285-25; A9270; J0696; J1644; J1885; J2060; J7030; J7040; P9612